=== PATIENT | female | born 1950 | race Caucasian/White ===

== ENCOUNTER 2017-05-20 08:01 | Day surgery (SDC) | payer BC ==
[2017-05-14 10:50] VITALS: BMI 24.7
[2017-05-20] MEDS: PHENYLEPHRINE 2.5% OPHTH SOLN 15 ML BOTTLE ONE ×3 (08:45→08:55)
[2017-05-20] MEDS: CIPROFLOXACIN 0.3% EYE DROPS 5 ML BOTTLE ONE ×3 (08:45→08:55)
[2017-05-20] MEDS: TROPICAMIDE 1% OPHTH SOLN 15 ML BOTTLE ONE ×3 (08:45→08:55)
[2017-05-20] MEDS: CYCLOPENTOLATE 2% OPHTH SOLN 2 ML BOTTLE ONE ×3 (08:45→08:55)
[2017-05-20 08:46] VITALS: TEMP 98.2
[2017-05-20] MEDS ORDERED: CARBACHOL 0.01% INTRA-OCULAR 1.5 ML VIAL ONE (10:25)
[2017-05-20] MEDS ORDERED: TETRACAINE 0.5% OPHTH SOLN 2 ML BOTTLE ONE (10:25)
[2017-05-20] MEDS ORDERED: BSS (NA/CA/MG/K) BALANCED SALT SOLUTION OPHTH SOLN 15 ML BOTTLE ONE (10:25)
[2017-05-20] MEDS ORDERED: MIDAZOLAM HCL 2 MG/2 ML SINGLE DOSE VIAL ONE ×2 (10:29→10:40)
[2017-05-20] MEDS ORDERED: LACTATED RINGERS SOLUTION 1,000 ML IV SCH (10:45)
[2017-05-20] MEDS ORDERED: ACETAMINOPHEN 325 MG TABLET (FP) ONE (11:29)
[2017-05-20] MEDS ORDERED: ACETAMINOPHEN 325 MG TABLET (FP) PO ONE (11:35)
[2017-05-20 13:13] VITALS: BP 124/76; PULSE 73
--- NOTE | 2017-05-21 11:22 | OP ---
DATE OF OPERATION: 05/20/2017 OPERATIVE PROCEDURE: Lens Phacoemulsification with Posterior Chamber Intraocular Lens Placement Left Eye PREOPERATIVE DIAGNOSIS: Visually Significant Cataract of Left Eye POSTOPERATIVE DIAGNOSIS: Visually Significant Cataract of Left Eye SURGEON: Lowell Mueller M.D. ANESTHESIA: MAC PROCEDURE: The patient was brought to the operating room and placed under monitored anesthesia care by Anesthesia. A drop of Tetracaine was then placed over the left eye. The patient was then prepped and draped in the usual sterile manner. A speculum was then placed over the left eye. The eye was then well irrigated with copious amounts of BSS (balanced salt solution). The operating microscope was then moved into position. A paracentesis was performed using a 15 degree blade. At this point 0.5 mL of 1% preservative-free lidocaine was injected into the anterior chamber. Amvisc plus was then injected into the anterior chamber. A clear corneal incision was then formed using a 2.2 mm keratome. A capsulorrhexis was then performed in a continuous circular fashion beginning with a cystotome, completed with a capsulorrhexis forceps. Hydrodissection was then performed using BSS on a cannula. The phaco probe was then introduced through the corneal wound and the cataract was removed using the phaco chop technique. Approximately 3 seconds of absolute phaco time was used. The remaining cortex was then removed using irrigation and aspiration with an I/A probe. The capsule was then filled with regular Amvisc and the capsule was noted to be intact. A previously selected foldable posterior chamber intraocular lens (18.5 diopter [id number]) was then injected into the capsule through the corneal wound using a lens injector. It was then dialed into position using a Sinskey hook. The Amvisc was then removed using irrigation and aspiration. Miostat was then injected through the paracentesis to constrict the pupil. The paracentesis and corneal wound were then hydrated and noted to be water tight. A drop of Maxitrol was then placed over the eye. The speculum was removed and clear shield was taped over the eye. The patient tolerated the procedure well and there were no surgical complications. The patient was asked to follow up in my office the next day. LOWELL MUELLER M.D. GALE/[id number] MTDD
== END 2017-05-20 13:21 | disposition home or self-care (01) ==
LOC: FASU 08:01
PROVIDERS: ATTEND Ophthalmology
PROC: 08RK3JZ Replacement of Left Lens with Synthetic Substitute, Percutaneous Approach (ICD-10-PCS; principal; 2017-05-20 10:38)
DX: H26.8 Other specified cataract (principal)

== ENCOUNTER 2017-12-31 18:21 | Observation (INO) | payer BC, OTHER ==
[2017-12-31 18:26] VITALS: BMI 30.1
[2017-12-31] MEDS ORDERED: NITROGLYCERIN SUBLINGUAL 1/150 0.4 MG TAB SL ONE (18:35)
--- NOTE | 2017-12-31 18:41 | PDOC ---
History of Present Illness - General Chief Complaint: Chest Pain Stated Complaint: CHEST PAIN Time Seen by Provider: 12/31/17 18:32 History Source: Patient Exam Limitations: No Limitations - History of Present Illness Initial Comments: 12/31/17 18:36 67 y/o female developed chest pain around 3 pm today. No hx of cardiac disease. Developed neck and chest pain with SOB. Now having chest pain. No back pain or arm pain. Was in [facility], but did not want to get stuck there in the early hours so took train home. No fall or trauma. Patient took Aspirin when she got home. No N /V/D/C. No diaphoresis. 12/31/17 18:52 Presenting Symptoms: Chest Pain, Short of Breath Past History - Past Medical History Allergies/Adverse Reactions: Allergies Allergy/AdvReac Type Severity Reaction Status Date / Time No Known Allergies Allergy Verified 12/31/17 18:23 Home Medications: Ambulatory Orders RX: Levothyroxine [Synthroid -] 175 mcg PO DAILY 05/20/17 Anemia: No Asthma: No Cancer: Yes (basal cell skin) Cardiac Disorders: No CVA: No COPD: No CHF: No Dementia: No Diabetes: No GI Disorders: No Disorders: No HTN: Yes Hypercholesterolemia: No Liver Disease: No Seizures: No Thyroid Disease: Yes - Surgical History Abdominal Surgery: No Appendectomy: No Cardiac Surgery: No Cholecystectomy: No Lung Surgery: No Neurologic Surgery: No Orthopedic Surgery: Yes (R foot sx,R knee arthroscopy) - Suicide/Smoking/Psychosocial Hx Smoking History: Never smoked Have you smoked in the past 12 months: No Hx Alcohol Use: No Drug/Substance Use Hx: No Substance Use Type: None Hx Substance Use Treatment: No Cardiac Specific PMH - Complaint Specific PMHX Pacemaker: No Review of Systems - Review of Systems Able to Perform ROS?: Yes Is the patient limited Swazi proficient: No Constitutional: No: Chills, Fever Respiratory: Yes: Shortness of Breath. No: Cough Cardiac (ROS): Yes: Chest Pain ABD/GI: No: Nausea, Vomiting All Other Systems: Reviewed and Negative *Physical Exam - Vital Signs Last Vital Signs Temp Pulse Resp BP Pulse Ox 63 18 115/69 100 12/31/17 19:15 12/31/17 18:48 12/31/17 19:15 03/01/18 18:48 - Physical Exam General Appearance: Yes: Nourished, Appropriately Dressed. No: Apparent Distress HEENT: positive: EOMI, UNIQUE, Normal ENT Inspection, Normal Voice, Symmetrical, Pharynx Normal Neck: positive: Trachea midline, Normal Thyroid, Supple. negative: Tender, Rigid, Carotid bruit Respiratory/Chest: positive: Lungs Clear, Normal Breath Sounds. negative: Chest Tender, Respiratory Distress Cardiovascular: positive: Regular Rhythm, Regular Rate, S1, S2. negative: Edema , JVD, Murmur Vascular Pulses: Femoral (R): 4+, Femoral (L): 4+, Carotid (R): 4+, Carotid (L) : 4+, Dorsalis-Pedis (R): 4+, Doralis-Pedis (L): 4+ Gastrointestinal/Abdominal: positive: Normal Bowel Sounds, Flat, Soft. negative : Tender, Organomegaly, Pulsatile Mass Lymphatic: negative: Adenopathy, Tenderness, Other Musculoskeletal: positive: Normal Inspection. negative: CVA Tenderness Extremity: positive: Normal Capillary Refill, Normal Inspection, Normal Range of Motion, Other (pulses equal b/l in UE and LE). negative: Calf Tenderness Integumentary: positive: Normal Color, Dry, Warm Neurologic: positive: propeller tester II-XII NML intact, Fully Oriented, Alert, Normal Mood/ Affect, Normal Response, Motor Strength 5/5 Heart Score/ECG Review - ECG Intrepretation Rhythm: Regular Rhythm Comment:: 12/31/17 18:40 At 18:30 NSR No STEMI T wave inversion lead III ED Treatment Course - LABORATORY CBC & Chemistry Diagram: 12/31/17 18:38 12/31/17 18:38 - ADDITIONAL ORDERS Additional order review: Laboratory Results 12/31/17 12/31/17 18:38 18:38 Sodium 132 L Potassium 3.5 Chloride 100 Carbon Dioxide 25 Anion Gap 7 L BUN 20 H Creatinine 1.1 Creat Clearance w eGFR 49.39 Random Glucose 103 Calcium 9.3 Total Bilirubin 0.8 AST 21 ALT 18 Alkaline Phosphatase 55 Troponin I < 0.03 Total Protein 6.7 Albumin 4.2 12/31/17 18:38 RBC 4.90 MCV 90.7 MCHC 33.5 RDW 13.6 MPV 8.4 Neutrophils % 78.5 Lymphocytes % 12.5 Monocytes % 6.3 Eosinophils % 2.3 Basophils % 0.4 - RADIOLOGY Radiology Studies Ordered: Category Date Time Status CHEST CTA [CT] Stat CT Scan 12/31/17 19:18 Ordered CHEST X-RAY PORTABLE* [RAD] Stat Radiology 12/31/17 18:35 Completed - Medications Given in the ED: ED Medications Discontinued Medications Generic Name Dose Route Start Last Admin Trade Name Emili PRN Reason Stop Dose Admin Nitroglycerin 0.4 mg 12/31/17 18:35 12/31/17 19:05 Nitrostat - SL 12/31/17 18:36 Not Given ONCE ONE Ondansetron HCl 4 mg 12/31/17 18:43 12/31/17 18:43 Zofran Injection IVPUSH 12/31/17 18:44 4 mg ONCE ONE Administration Progress Note - Progress Note Progress Note: Will obtain labs and EKG for further cardiac evaluation. Pt is in agreement with plan. Pt's hear rate dropped into upper 30's and low 40's with only Zofran being given , IVF bolus given. HR now in the 60,s Chest Xray: No widening of mediastinum, unchanged from prior EKG NST at 60, no STEMI seen at 18:53 Pt states having SOB, hurts to breath, will add CT chest to r/o dissecting aneurysm/PE Pt is in agreement with plan At [address] Laboy. Labs normal and CT pending. Will need admission and Cardiology consult. *DC/Admit/Observation/Transfer Diagnosis at time of Disposition: Shortness of breath Chest pain Qualifiers: Chest pain type: unspecified Qualified Code(s): R07.9 - Chest pain, unspecified - Discharge Dispostion Condition at time of disposition: Guarded - Referrals - Patient Instructions - Post Discharge Activity
[2017-12-31] MEDS ORDERED: NITROGLYCERIN SUBLINGUAL 1/150 0.4 MG TAB ONE (18:42)
[2017-12-31] MEDS ORDERED: ONDANSETRON 4 MG/2 ML VIAL IVPUSH ONE (18:43)
[2017-12-31] MEDS ORDERED: ONDANSETRON 4 MG/2 ML VIAL ONE (18:43)
[2017-12-31] MEDS ORDERED: SODIUM CHLORIDE 500 ML IV STA (18:48)
[2017-12-31 19:04] LABS: BASO % 0.4 % (0-2.0); EOS % 2.3 % (0-4.5); HEMATOCRIT 44.5 % (32.4-45.2); HEMOGLOBIN 14.9 GM/dl (10.7-15.3); LYMPH % 12.5 % (8-40); MCH 30.4 pg (25.7-33.7); MCHC 33.5 g/dl (32.0-36.0); MEAN CELL VOLUME 90.7 fl (80-96); MEAN PLT VOLUME 8.4 fl (7.5-11.1); MONO % 6.3 % (3.8-10.2); NEUT % 78.5 % (42.8-82.8); PLATELET COUNT 309 K/MM3 (134-434); RDW 13.6 % (11.6-15.6); WHITE BLOOD COUNT 11.6 K/mm3 (4.0-10.8)
[2017-12-31 19:13] LABS: ALBUMIN 4.2 g/dl (3.5-5.0); ALK PHOS 55 U/L (32-92); ANION GAP 7 (8-16); BILIRUBIN,TOTAL 0.8 mg/dl (0.2-1.0); BLOOD UREA NITROGEN 20 mg/dl (7-18); CALCIUM 9.3 mg/dl (8.4-10.2); CHLORIDE 100 mmol/L (98-107); CO2 25 mmol/L (22-28); CREATININE 1.1 mg/dl (0.6-1.3); GLUCOSE,RANDOM 103 mg/dl (74-106); POTASSIUM 3.5 mmol/L (3.5-5.1); SGOT/AST 21 U/L (10-42); SGPT/ALT 18 U/L (10-40); SODIUM 132 mmol/L (136-145); TOT PROT 6.7 g/dl (6.4-8.3)
--- NOTE | 2017-12-31 20:52 | PDOC ---
*Physical Exam - Vital Signs Last Vital Signs Temp Pulse Resp BP Pulse Ox 95 H 24 122/100 98 12/31/17 20:20 12/31/17 20:20 12/31/17 20:20 12/31/17 20:20 ED Treatment Course - LABORATORY CBC & Chemistry Diagram: 12/31/17 18:38 12/31/17 18:38 - ADDITIONAL ORDERS Additional order review: Laboratory Results 12/31/17 12/31/17 18:38 18:38 Sodium 132 L Potassium 3.5 Chloride 100 Carbon Dioxide 25 Anion Gap 7 L BUN 20 H Creatinine 1.1 Creat Clearance w eGFR 49.39 Random Glucose 103 Calcium 9.3 Total Bilirubin 0.8 AST 21 ALT 18 Alkaline Phosphatase 55 Troponin I < 0.03 Total Protein 6.7 Albumin 4.2 12/31/17 18:38 RBC 4.90 MCV 90.7 MCHC 33.5 RDW 13.6 MPV 8.4 Neutrophils % 78.5 Lymphocytes % 12.5 Monocytes % 6.3 Eosinophils % 2.3 Basophils % 0.4 - Medications Given in the ED: ED Medications Discontinued Medications Generic Name Dose Route Start Last Admin Trade Name Freq PRN Reason Stop Dose Admin Sodium Chloride 500 mls @ 500 mls/hr 12/31/17 18:48 12/31/17 18:49 Normal Saline - IV 12/31/17 19:47 500 mls/hr ASDIR STA Administration Nitroglycerin 0.4 mg 12/31/17 18:35 12/31/17 19:05 Nitrostat - SL 12/31/17 18:36 Not Given ONCE ONE Ondansetron HCl 4 mg 12/31/17 18:43 12/31/17 18:43 Zofran Injection IVPUSH 12/31/17 18:44 4 mg ONCE ONE Administration Progress Note - Progress Note Progress Note: Care of this patient was transferred to [place] from Dr. Ling at 1900 hrs. Patient is a 67-year-old female who developed chest pain associated with shortness of breath earlier in the day about 3 PM. Patient came in for evaluation. While here in the emergency room patient had an episode of increased chest pain, shortness of breath and developed a brief episode of some bradycardia. Patient was given some nitroglycerin and a CT angiogram of her chest to rule out aortic dissection rule out pulmonary embolism 20:45 CT angiogram of the chest was negative for any acute pathology negative for any PE or aneurysm. It is uncertain as to the etiology of patient's chest pain as her EKG is unremarkable 2 however patient will be placed in an observation bed to obtain 2 more sets of cardiac enzymes and rule her out. *DC/Admit/Observation/Transfer Diagnosis at time of Disposition: Shortness of breath Chest pain Qualifiers: Chest pain type: unspecified Qualified Code(s): R07.9 - Chest pain, unspecified - Discharge Dispostion Condition at time of disposition: Guarded Admit: Yes - Referrals - Patient Instructions - Post Discharge Activity
--- NOTE | 2018-01-01 00:30 | HP ---
CHIEF COMPLAINT: chest pain PCP: Kevin HISTORY OF PRESENT ILLNESS: This is a 67 year old male with a significant past medical history of HTN who presented to the ED with chest pain since 3pm. She states that the pain started suddenly while she was sitting at her desk. She says the pain increases with breathing and is unable to take a deep breath.She states the pain radiated to her neck. She denies palpitations. Upon exam, pt reports the pain is more severe than earlier. The pain is improved when she sits up and leans forward but it is still present. Of note, pt had an episode of bradycardia in the ED but rate not documented. ER course was notable for: (1) ECG with flipped T wave lead 3 (2) Troponin neg x 1 (3) WBC 11.6 Recent Travel: pt denies PAST MEDICAL HISTORY: HTN, Hypothyroid, herpes simplex, BCC skin on back PAST SURGICAL HISTORY: R ACL repair R foot "hemijoint" L cataract Social History: Smoking: pt denies Alcohol: pt denies Drugs: pt denies Family History: maternal GM with angina mother age 95, h/o CVA first at age 85, HTN father age 72, complications of celiac disease brother alive with no medical problems 3 children alive and well Allergies No Known Allergies Allergy (Verified 12/31/17 18:23) HOME MEDICATIONS: 3 Medication Instructions Recorded Levothyroxine [Synthroid -] 175 mcg PO DAILY 05/20/17 REVIEW OF SYSTEMS CONSTITUTIONAL: Absent: fever, chills, diaphoresis, generalized weakness, malaise, loss of appetite, weight change HEENT: Absent: rhinorrhea, nasal congestion, throat pain, throat swelling, difficulty swallowing, mouth swelling, ear pain, eye pain, visual changes CARDIOVASCULAR: chest pain Absent: syncope, palpitations, irregular heart rate, lightheadedness, peripheral edema RESPIRATORY: Absent: cough, shortness of breath, dyspnea with exertion, orthopnea, wheezing, stridor, hemoptysis GASTROINTESTINAL: Absent: abdominal pain, abdominal distension, nausea, vomiting, diarrhea, constipation, melena, hematochezia GENITOURINARY: Absent: dysuria, frequency, urgency, hesitancy, hematuria, flank pain, genital pain MUSCULOSKELETAL: Absent: myalgia, arthralgia, joint swelling, back pain, neck pain SKIN: Absent: rash, itching, pallor HEMATOLOGIC/IMMUNOLOGIC: Absent: easy bleeding, easy bruising, lymphadenopathy, frequent infections ENDOCRINE: Absent: unexplained weight gain, unexplained weight loss, heat intolerance, cold intolerance NEUROLOGIC: Absent: headache, focal weakness or paresthesias, dizziness, unsteady gait, seizure, mental status changes, bladder or bowel incontinence PSYCHIATRIC: Absent: anxiety, depression, suicidal or homicidal ideation, hallucinations. PHYSICAL EXAMINATION Vital Signs - 24 hr 3 12/31/17 12/31/17 12/31/17 18:22 18:48 18:56 Pulse Rate 100 H Pulse Rate [ 36 L 70 Apical] Respiratory 18 18 Rate Blood Pressure 171/104 Blood Pressure 81/44 118/55 [Left Arm] O2 Sat by Pulse 100 100 Oximetry (%) 3 12/31/17 12/31/17 12/31/17 19:15 20:20 21:17 Pulse Rate Pulse Rate [ 63 95 H 93 H Apical] Respiratory 24 24 Rate Blood Pressure Blood Pressure 115/69 122/100 123/79 [Left Arm] O2 Sat by Pulse 98 98 Oximetry (%) GENERAL: Awake, alert, and fully oriented, in no acute distress. HEAD: Normal with no signs of trauma. EYES: Pupils equal, round and reactive to light, extraocular movements intact, sclera anicteric, conjunctiva clear. No lid lag. EARS, NOSE, THROAT: Ears normal, nares patent, oropharynx clear without exudates. Moist mucous membranes. NECK: Normal range of motion, supple without lymphadenopathy, JVD, or masses. LUNGS: Breath sounds equal, clear to auscultation bilaterally. No wheezes, and no crackles. No accessory muscle use. HEART: Regular rate and rhythm, normal S1 and S2 without murmur, rub or gallop. ABDOMEN: Soft, nontender, not distended, normoactive bowel sounds, no guarding, no rebound, no masses. No hepatomegaly or splenomegaly. MUSCULOSKELETAL: Normal range of motion at all joints. No bony deformities or tenderness. No CVA tenderness. UPPER EXTREMITIES: 2+ pulses, warm, well-perfused. No cyanosis. No clubbing. No peripheral edema. LOWER EXTREMITIES: 2+ pulses, warm, well-perfused. No calf tenderness. No peripheral edema. NEUROLOGICAL: Cranial nerves II-XII intact. Normal speech. Normal gait. PSYCHIATRIC: Cooperative. Good eye contact. Appropriate mood and affect. SKIN: Warm, dry, normal turgor, no rashes or lesions noted, normal capillary refill. Laboratory Results - last 24 hr 3 12/31/17 12/31/17 12/31/17 18:38 18:38 18:38 WBC 11.6 H RBC 4.90 Hgb 14.9 Hct 44.5 MCV 90.7 MCH 30.4 MCHC 33.5 RDW 13.6 Plt Count 309 MPV 8.4 Neutrophils % 78.5 Lymphocytes % 12.5 Monocytes % 6.3 Eosinophils % 2.3 Basophils % 0.4 Sodium 132 L Potassium 3.5 Chloride 100 Carbon Dioxide 25 Anion Gap 7 L BUN 20 H Creatinine 1.1 Creat Clearance w eGFR 49.39 Random Glucose 103 Calcium 9.3 Total Bilirubin 0.8 AST 21 ALT 18 Alkaline Phosphatase 55 Troponin I < 0.03 Total Protein 6.7 Albumin 4.2 ECG 12/31/17 18:30 NSR vent rate 90, QTC 455 TWI lead 3, ? Q wave lead 2, aVF 12/31/17 18:53 NSR vent rate 60, QTC 446 TWI lead 3, ? Q wave lead 2, aVF 01/01/18 00:55 NSR vent rate 76, QTC 441 TWI lead 3, Q waves lead 2, aVF not as pronounced Radiology Reports CTA chest IMPRESSION: 1. No evidence of pulmonary embolism. 2. Bibasilar atelectasis with no evidence of acute pathology within the chest. Reported By: Tyler Bone MD 12/31/172044 CXR IMPRESSION: Cardiomegaly, no acute disease. Reported By: Tyler Bone MD 12/31/17 191 ASSESSMENT/PLAN: 67yF with PMH HTN, herpes simplex, hypothyroidism presented to the ED with sudden onset chest pain today. chest pain - troponin neg x 1, trend x 2 more - tele monitoring - ? pericarditis picture: pleuritic in nature, improves with sitting up and leaning forward, will give toradol 30mg x 1, if effective will start ibuprofen 600mg TID and colchicine - cardiology consult - echo HTN - cont home prinivil herpes simplex - cont home valtrex hypothyroidism - pt believes synthroid 175 is her home dose, attempt to verify in am. DVT PPX - defer as expected LOS less than 48 h FEN - defer IVF, tolerating po - BMP in am - low sodium diet as tolerated Dispo: pt admitted for further observation Hospitalist Screening - Colonoscopy Questionnaire Colonoscopy Questionnaire: Colonoscopy Questionnaire
[2018-01-01] MEDS ORDERED: KETOROLAC TROMETHAMINE 30 MG/1 ML VIAL IVPUSH ONE ×2 (00:52→10:15)
[2018-01-01] MEDS ORDERED: MELATONIN 5 MG TABLETS PO ONE (01:09)
[2018-01-01] MEDS ORDERED: MAGNESIUM OXIDE 400 MG TABLET (FP) PO ONE (01:09)
[2018-01-01] MEDS ORDERED: LEVOTHYROXINE NA 100 MCG TABLET (FP) ONE (06:40)
[2018-01-01] MEDS ORDERED: LEVOTHYROXINE NA 75 MCG TABLET (FP) ONE (06:41)
[2018-01-01] MEDS: LEVOTHYROXINE 100 MCG, LEVOTHYROXINE 75 MCG PO SCH (06:50)
--- NOTE | 2018-01-01 08:06 | PN ---
Physical Exam: SUBJECTIVE: Patient seen and examined, reports substernal non-radiating pain that worsens upon lying and taking deep breaths, patient reports pain is improved upon leaning forward. OBJECTIVE: patient is a 67 y/o female with a past medical history of hypertension and hypothyroidsim, patient was admitted from the emergency department to observation for chest pain, r/o acs. Vital Signs Period Temp Pulse Resp BP Sys/Felipe Pulse Ox Last 24 Hr 99.8 F-100.5 F 36-100 18-24 81-171/44-104 95-100 GENERAL: The patient is awake, alert, and fully oriented, in no acute distress. HEAD: Normal with no signs of trauma. EYES: PERRL, extraocular movements intact, sclera anicteric, conjunctiva clear. No ptosis. ENT: Ears normal, nares patent, oropharynx clear without exudates, moist mucous membranes. NECK: Trachea midline, full range of motion, supple. LUNGS: Breath sounds equal, clear to auscultation bilaterally, no wheezes, no crackles, no accessory muscle use. HEART: Regular rate and rhythm, S1, S2 without murmur, rub or gallop. ABDOMEN: Soft, nontender, nondistended, normoactive bowel sounds, no guarding, no rebound, no hepatosplenomegaly, no masses. EXTREMITIES: 2+ pulses, warm, well-perfused, no edema. NEUROLOGICAL: Cranial nerves II through XII grossly intact. Normal speech, gait not observed. PSYCH: Normal mood, normal affect. SKIN: Warm, dry, normal turgor, no rashes or lesions noted Laboratory Results - last 24 hr 12/31/17 12/31/17 12/31/17 18:38 18:38 18:38 WBC 11.6 H RBC 4.90 Hgb 14.9 Hct 44.5 MCV 90.7 MCH 30.4 MCHC 33.5 RDW 13.6 Plt Count 309 MPV 8.4 Neutrophils % 78.5 Lymphocytes % 12.5 Monocytes % 6.3 Eosinophils % 2.3 Basophils % 0.4 Sodium 132 L Potassium 3.5 Chloride 100 Carbon Dioxide 25 Anion Gap 7 L BUN 20 H Creatinine 1.1 Creat Clearance w eGFR 49.39 Random Glucose 103 Calcium 9.3 Total Bilirubin 0.8 AST 21 ALT 18 Alkaline Phosphatase 55 Creatine Kinase Troponin I < 0.03 Total Protein 6.7 Albumin 4.2 01/01/18 00:30 WBC RBC Hgb Hct MCV MCH MCHC RDW Plt Count MPV Neutrophils % Lymphocytes % Monocytes % Eosinophils % Basophils % Sodium Potassium Chloride Carbon Dioxide Anion Gap BUN Creatinine Creat Clearance w eGFR Random Glucose Calcium Total Bilirubin AST ALT Alkaline Phosphatase Creatine Kinase 57 Troponin I 0.13 H Total Protein Albumin Active Medications Generic Name Dose Route Start Last Admin Trade Name Freq PRN Reason Stop Dose Admin Levothyroxine Sodium 100 mcg/ 175 mcg 01/01/18 07:00 01/01/18 06:50 Levothyroxine Sodium 75 mcg PO 175 mcg DAILY@0700 [facility] Administration Lisinopril 10 mg 01/01/18 10:00 Prinivil PO DAILY [facility] Magnesium Oxide 400 mg 01/01/18 22:00 Mag-Ox - PO HS [facility] Valacyclovir HCl 500 mg 01/01/18 10:00 Valtrex - PO DAILY [facility] ECG 12/31/17 18:30 NSR vent rate 90, QTC 455 TWI lead 3, ? Q wave lead 2, aVF 12/31/17 18:53 NSR vent rate 60, QTC 446 TWI lead 3, ? Q wave lead 2, aVF 01/01/18 00:55 NSR vent rate 76, QTC 441 TWI lead 3, Q waves lead 2, aVF not as pronounced Radiology Reports CTA chest IMPRESSION: 1. No evidence of pulmonary embolism. 2. Bibasilar atelectasis with no evidence of acute pathology within the chest. Reported By: Tyler Bone MD 12/31/172044 CXR IMPRESSION: Cardiomegaly, no acute disease. Reported By: Tyler Bone MD 12/31/17 191 ASSESSMENT/PLAN: 1) chest pain r/o acs - troponin x 3 wnl, no events telemetry events - pending echo - pain resolved with toradol, pleuritic in nature, improves with sitting up and leaning forward, pain likely pericarditis - appreciate cardiology consult 2)HTN - cont home prinivil 3) herpes simplex - cont home valtrex 4) hypothyroidism - continue home dose synthroid 175, pending tsh DVT PPX - defer as expected LOS less than 48 h FEN - defer IVF, tolerating po - BMP in am - low sodium diet as tolerated Dispo: pt admitted for further observation Visit type - Emergency Visit Emergency Visit: Yes ED Registration Date: 12/31/17 Care time: The patient presented to the Emergency Department on the above date and was hospitalized for further evaluation of their emergent condition. - New Patient This patient is new to me today: No - Critical Care Critical Care patient: No - Discharge Referral Referred to [facility] No
[2018-01-01 08:27] LABS: EOS % 0.5 % (0-4.5); HEMATOCRIT 36.3 % (32.4-45.2); HEMOGLOBIN 12.7 GM/dl (10.7-15.3); LYMPH % 10.5 % (8-40); MCH 31.6 pg (25.7-33.7); MCHC 34.9 g/dl (32.0-36.0); MEAN CELL VOLUME 90.5 fl (80-96); MEAN PLT VOLUME 8.5 fl (7.5-11.1); MONO % 10.9 % (3.8-10.2); NEUT % 78.1 % (42.8-82.8); PLATELET COUNT 225 K/MM3 (134-434); RBC 4.02 M/mm3 (3.60-5.2); RDW 13.6 % (11.6-15.6); WHITE BLOOD COUNT 9.4 K/mm3 (4.0-10.8)
[2018-01-01 08:49] LABS: ANION GAP 6 (8-16); BLOOD UREA NITROGEN 19 mg/dl (7-18); CALCIUM 8.4 mg/dl (8.4-10.2); CHLORIDE 106 mmol/L (98-107); CO2 23 mmol/L (22-28); CREATININE 1.1 mg/dl (0.6-1.3); GLUCOSE,RANDOM 116 mg/dl (74-106); PHOSPHOROUS 4.2 mg/dl (2.5-4.6); POTASSIUM 3.7 mmol/L (3.5-5.1); SODIUM 135 mmol/L (136-145)
[2018-01-01] MEDS ORDERED: LEVOTHYROXINE NA 175 MCG TABLET PO SCH (10:00)
[2018-01-01] MEDS ORDERED: PANTOPRAZOLE SODIUM 40 MG VIAL IVPUSH SCH (10:15)
[2018-01-01] MEDS: SODIUM CHLORIDE 0.9%/KCL 20 MEQ/1,000 ML INFUS.BAG IV SCH (10:22)
[2018-01-01] MEDS: LISINOPRIL 10 MG TABLET (FP) PO SCH (10:22)
[2018-01-01] MEDS: valACYclovir HCL 500 MG TABLET (FP) PO SCH (10:24)
[2018-01-01] MEDS ORDERED: ONDANSETRON 4 MG/2 ML VIAL IVPB ONE (10:30)
[2018-01-01] MEDS ORDERED: IBUPROFEN 600 MG TABLET (FP) PO PRN (11:35)
[2018-01-01] MEDS: IBUPROFEN 400 MG TABLET (FP) PO SCH ×2 (15:54→23:10)
[2018-01-01 16:48] LABS: URINE APPEARANCE Clear; URINE BILIRUBIN 1+ (NEGATIVE); URINE BLOOD Negative (NEGATIVE); URINE GLUCOSE (UA) Negative (NEGATIVE); URINE KETONE Negative (NEGATIVE); URINE LEUK ESTERASE Negative (NEGATIVE); URINE NITRITE Negative (NEGATIVE); URINE UROBILINOGEN 0.2 (0.2-1.0)
[2018-01-01 16:49] LABS: URINE COLOR YELLOW; URINE PROTEIN 1+ (NEGATIVE)
--- NOTE | 2018-01-01 18:19 | EKG ---
Test Reason : Blood Pressure : / mmHG Vent. Rate : 090 BPM Atrial Rate : 090 BPM P-R Int : 180 ms QRS Dur : 096 ms QT Int : 372 ms P-R-T Axes : 030 028 017 degrees QTc Int : 455 ms NORMAL SINUS RHYTHM ? INFERIOR INFARCT , AGE UNDETERMINED NO PREVIOUS ECGS AVAILABLE Confirmed by MD QUIN, NAHUM ([id number]) on 01/01/2018 6:19:25 PM Referred By: DR DEL RIO Confirmed By:NAHUM TSAI MD
--- NOTE | 2018-01-01 18:19 | EKG ---
Test Reason : Blood Pressure : / mmHG Vent. Rate : 076 BPM Atrial Rate : 076 BPM P-R Int : 160 ms QRS Dur : 096 ms QT Int : 392 ms P-R-T Axes : 026 012 005 degrees QTc Int : 441 ms NORMAL SINUS RHYTHM WHEN COMPARED WITH ECG OF 31-DEC-2017 18:30, NO SIGNIFICANT CHANGE WAS FOUND Confirmed by MD TSAI MARJORY ([id number]) on 01/01/2018 6:19:07 PM Referred By: Confirmed By:NAHUM TSAI MD
[2018-01-01 18:49] LABS: EPI CELLS FEW /HPF; URINE BACTERIA FEW /hpf (NEGATIVE); URINE RBC 0-2 /hpf (0-3)
--- NOTE | 2018-01-01 20:27 | CON.CARD ---
Cardiology Consult (text) - Consultation Consultation Note: cc: cp 67 yo with h/o HTN , hypothyroid, herpes simplex, basal cell carcinoma who p/w CP. Began yesterday at work, has been constant ever since. Was able to take public transportation home (walked upstairs to subway, etc...) without worsening of CP. CP positional and pleuritic. Increases in severity when lying down or with inspiration. Improves when sitting up. No recent URI or illness. Exercises regularly, no increase in intensity of routine. CP not reproducible to palpation. Assoc with h/a. No rosas, orthopnea, pnd, le edema, palps, dizziness, + chills, sweats today and yesterday. No n/v/d, cough, congestion, rash, visual disturbance, decrease in po intake. In ER received IVF, zofran. Today received toradol x 2 with significant improvement (though not resolution) of pain. PAST MEDICAL HISTORY: per hpi, PAST SURGICAL HISTORY: R ACL repair R foot "hemijoint" L cataract Social History: Smoking: pt denies Alcohol: pt denies Drugs: pt denies Family History: maternal GM with angina mother age 95, h/o CVA first at age 85, HTN father age 72, complications of celiac disease brother alive with no medical problems 3 children alive and well Ros: per hpi Ambulatory Orders Levothyroxine [Synthroid -] 175 mcg PO DAILY 05/20/17 Ibuprofen [Motrin -] 600 mg PO Q8H PRN tablet 01/01/18 Lisinopril [Prinivil] 10 mg PO DAILY 01/01/18 Magnesium Oxide 400 mg PO HS 01/01/18 Valacyclovir HCl [Valtrex] 500 mg PO DAILY 01/01/18 Current Medications Potassium Chloride/Sodium Chloride (Ns+20 Meq Kcl -) 20 meq in 1,000 mls @ 83 mls/hr IV ASDIR [facility] Last Admin: 01/01/18 10:22 Dose: 83 mls/hr Ibuprofen (Motrin -) 800 mg PO Q8H [facility] Last Admin: 01/01/18 15:54 Dose: 800 mg Levothyroxine Sodium 100 mcg/ (Levothyroxine Sodium 75 mcg) 175 mcg PO DAILY@ 0700 [facility] Last Admin: 01/01/18 06:50 Dose: 175 mcg Lisinopril (Prinivil) 10 mg PO DAILY [facility] Last Admin: 01/01/18 10:22 Dose: 10 mg Magnesium Oxide (Mag-Ox -) 400 mg PO [facility] Pantoprazole Sodium (Protonix Iv) 40 mg IVPUSH DAILY [facility] Last Admin: 01/01/18 10:14 Dose: 40 mg Valacyclovir HCl (Valtrex -) 500 mg PO DAILY [facility] Last Admin: 01/01/18 10:24 Dose: Not Given Vital Signs - 24 hr 12/31/17 01/01/18 01/01/18 21:17 01:34 05:06 Temperature 100.5 F H 99.8 F H Pulse Rate 73 68 Pulse Rate [ 93 H Apical] Respiratory 24 18 19 Rate Blood Pressure 99/57 90/44 Blood Pressure 123/79 [Left Arm] O2 Sat by Pulse 98 95 Oximetry (%) 01/01/18 01/01/18 01/01/18 06:26 10:02 14:00 Temperature 99.2 F 98.7 F Pulse Rate 77 84 Pulse Rate [ Apical] Respiratory 16 17 Rate Blood Pressure 116/63 97/53 Blood Pressure [Left Arm] O2 Sat by Pulse 95 94 L Oximetry (%) Intake & Output 12/30/17 12/31/17 01/01/18 01/02/18 07:59 07:59 07:59 07:59 Intake Total 1450 1064 Balance 1450 1064 Weight 170 lb nad, calm but in discomfort. jvd flat, neck supple ctab, nl effort rrr nl s1, s2 2/6 murmur at sternal border and apex. no rub. + bs soft nt nd, no hsm ext without e/c/c + dp/pt, no carotid bruits aaox3 no jaundice, diaphoresis. CBC, BMP 01/01/18 07:35 01/01/18 07:35 Laboratory Tests 12/31/17 12/31/17 12/31/17 18:38 18:38 18:38 WBC 11.6 H ESR Potassium 3.5 Magnesium Total Bilirubin 0.8 AST 21 ALT 18 Alkaline Phosphatase 55 Creatine Kinase Troponin I < 0.03 C-Reactive Protein Albumin 4.2 TSH 01/01/18 01/01/18 01/01/18 00:30 07:30 07:35 WBC ESR Potassium Magnesium 2.0 Total Bilirubin AST ALT Alkaline Phosphatase Creatine Kinase 57 39 Troponin I 0.13 H C-Reactive Protein Albumin TSH 0.03 L 01/01/18 01/01/18 01/01/18 07:35 07:35 07:35 WBC ESR 13 Potassium Magnesium Total Bilirubin AST ALT Alkaline Phosphatase Creatine Kinase Troponin I < 0.03 C-Reactive Protein Pending Albumin TSH ekg: nsr, bline inf q's (slightly more prominent than on office ekg). inferior twi/flattening on initial ekg. Subsequent resolution tele: nsr chest cta: no pe or aortic pathology. atelectasis at bases. A/p 67 yo with h/o HTN , hypothyroid, herpes simplex, basal cell carcinoma who p/w CP. CP - atypical for angina. positional and pleuritic. CRP and echo pending, but can begin empiric tx with ibuprofen TID and colchicine for px. - overall negative trop. ekg without acute ischemic abnormalities. Given RF's and borderline/subtle transient twi --> plan on stress testing as outpatient. - Still currently in significant discomfort, monitor for improvement on this regimen. If no improvement and pending results of crp and echo --> may need to reconsider plan and need for inpatient ischemic evaluation. - evaluation of pleurisy (need for viral panel etc....) per pmd. murmur - echo pending htn - controlled/running low on current regimen. monitor on ibuprofen. ab tsh - mgm't per pmd.
[2018-01-01] MEDS ORDERED: MAGNESIUM OXIDE 400 MG TABLET (FP) PO SCH (22:00)
[2018-01-02] MEDS ORDERED: LEVOTHYROXINE NA 100 MCG TABLET (FP) ONE (06:30)
[2018-01-02] MEDS ORDERED: LEVOTHYROXINE NA 75 MCG TABLET (FP) ONE (06:31)
[2018-01-02] MEDS: LEVOTHYROXINE 100 MCG, LEVOTHYROXINE 75 MCG PO SCH (06:39)
[2018-01-02] MEDS: IBUPROFEN 400 MG TABLET (FP) PO SCH (07:36)
--- NOTE | 2018-01-02 08:00 | PN ---
Progress Note, Physician Chief Complaint: cp History of Present Illness: pain much improved. was severe central cp radiating to base of throat, worse supine and with deep inspiration. also worse when ate large amount and had full stomach (???). did not feel mskeletal to her (lifts 90 lbs weights at gym routinely) was no acid/burning (no h/o heartburn), no nausea, excess saliva now only mild pain, and rare episodes. no sob, palp, syncope denies hi mental stress lately denies viral syndrome/infectious sx's - Current Medication List Current Medications: Active Medications Colchicine (Colcrys -) 0.6 mg PO BID [facility] Potassium Chloride/Sodium Chloride (Ns+20 Meq Kcl -) 20 meq in 1,000 mls @ 83 mls/hr IV ASDIR [facility] Last Admin: 01/01/18 10:22 Dose: 83 mls/hr Ibuprofen (Motrin -) 800 mg PO Q8H [facility] Last Admin: 01/02/18 07:36 Dose: 800 mg Levothyroxine Sodium 100 mcg/ (Levothyroxine Sodium 75 mcg) 175 mcg PO DAILY@ 0700 [facility] Last Admin: 01/02/18 06:39 Dose: 175 mcg Lisinopril (Prinivil) 10 mg PO DAILY [facility] Last Admin: 01/01/18 10:22 Dose: 10 mg Magnesium Oxide (Mag-Ox -) 400 mg PO HS [facility] Last Admin: 01/01/18 21:19 Dose: 400 mg Pantoprazole Sodium (Protonix Iv) 40 mg IVPUSH DAILY [facility] Last Admin: 01/01/18 10:14 Dose: 40 mg Valacyclovir HCl (Valtrex -) 500 mg PO DAILY [facility] Last Admin: 01/01/18 10:24 Dose: Not Given - Objective Vital Signs: Vital Signs Temperature 99.1 F 01/02/18 06:00 Pulse Rate 76 01/02/18 06:00 Respiratory Rate 17 01/02/18 06:00 Blood Pressure 138/90 01/02/18 06:00 O2 Sat by Pulse Oximetry (%) 95 01/02/18 07:07 Constitutional: Yes: Well Nourished, No Distress, Calm Neck: Yes: Lymphadenopathy Cardiovascular: Yes: Regular Rate and Rhythm, S1, S2. No: Gallop, Murmur, Rub Respiratory: Yes: Regular, CTA Bilaterally (no rub). No: Accessory Muscle Use, Rales, Wheezes Extremities: No: Cold Edema: No Neurological: Yes: Alert, Oriented Psychiatric: No: Agitated Labs: CBC, BMP 01/01/18 07:35 01/01/18 07:35 - ....Imaging EKG: Other (tele: NSR) Assessment/Plan ekg: NSR, no signif ST-T abnormalities (x3) Echo 01/17: nl LV/EF; nl RV; dilated LA; mild MR/TR; RVP 35-38; no peric effusion (images reviewed by gitig: no RWMAs chest cta: no pe or aortic pathology. atelectasis at bases. A/p 67 yo with h/o HTN , hypothyroid, herpes simplex, basal cell carcinoma who p/w CP. CP - atypical for angina. positional and pleuritic = mskeletal vs pericarditis vs GERD/other GI - troponin <0.03-->0.13--> <0.03, nonspecific findings - CRP elevated. - normal LV function/wall motion and no peric effusion - no friction rub or ekg changes, hence dx of pericarditis is not certain, but is suspected as the most likely etiology of these sx's - has received 3 doses of ibuprofen 800 mg since yesterday afternoon with signif improvement in sx's - no need for stress testing as her picture is clearly not myocardial ischemic syndrome - rec ibuprofen STANDING REGIMEN 800mg TID x2 weeks, then decrease to 600mg TID x2 weeks - pt to see me in 3-4 weeks to decide on further NSAID taper at that time - defer colchicine for now unless sx's return with NSAID taper - rec pantoprazole prophylaxis until off NSAIDs htn - controlled - cont home meds hyperthyroid - TSH very suppressed (0.03) - ? adjust synthroid dose, per hospitalist
[2018-01-02 09:20] LABS: ANION GAP 7 (8-16); BLOOD UREA NITROGEN 17 mg/dl (7-18); CALCIUM 8.6 mg/dl (8.4-10.2); CHLORIDE 109 mmol/L (98-107); CHOLESTEROL 175 mg/dl; CO2 21 mmol/L (22-28); CREATININE 0.9 mg/dl (0.6-1.3); GLUCOSE,RANDOM 99 mg/dl (74-106); HDL CHOLESTEROL 62 mg/dl (29-89); LDL CHOLESTEROL (ONLY DFH) 102 mg/dl; SODIUM 137 mmol/L (136-145); TRIGLYCERIDES 54 mg/dl (35-160)
[2018-01-02 09:41] VITALS: BP 123/68; PULSE 73; TEMP 98.7
[2018-01-02] MEDS: valACYclovir HCL 500 MG TABLET (FP) PO SCH (09:41)
[2018-01-02] MEDS: LISINOPRIL 10 MG TABLET (FP) PO SCH (09:46)
[2018-01-02] MEDS: SODIUM CHLORIDE 0.9%/KCL 20 MEQ/1,000 ML INFUS.BAG IV SCH (09:46)
[2018-01-02] MEDS ORDERED: PANTOPRAZOLE 40 MG TABLET (FP) PO SCH (10:00)
[2018-01-02] MEDS ORDERED: COLCHICINE 0.6 MG TABLET (FP) PO SCH (10:00)
--- NOTE | 2018-01-02 11:09 | DS ---
Physical Exam: SUBJECTIVE: Patient seen and examined OBJECTIVE: Vital Signs Period Temp Pulse Resp BP Sys/Felipe Pulse Ox Last 24 Hr 98.1 F-99.1 F 64-84 17-18 97-138/53-90 94-95 PHYSICAL EXAM GENERAL: The patient is awake, alert, and fully oriented, in no acute distress. HEAD: Normal with no signs of trauma. EYES: PERRL, extraocular movements intact, sclera anicteric, conjunctiva clear. ENT: Ears normal, nares patent, oropharynx clear without exudates, moist mucous membranes. NECK: Trachea midline, full range of motion, supple. LUNGS: Breath sounds equal, clear to auscultation bilaterally, no wheezes, no crackles, no accessory muscle use. HEART: Regular rate and rhythm, S1, S2 without murmur, rub or gallop. ABDOMEN: Soft, nontender, nondistended, normoactive bowel sounds, no guarding, no rebound, no hepatosplenomegaly, no masses. EXTREMITIES: 2+ pulses, warm, well-perfused, no edema. NEUROLOGICAL: Cranial nerves II through XII grossly intact. Normal speech, gait not observed. PSYCH: Normal mood, normal affect. SKIN: Warm, dry, normal turgor, no rashes or lesions noted. LABS Laboratory Results - last 24 hr 01/01/18 01/01/18 01/01/18 07:30 07:35 07:35 ESR 13 Sodium Potassium Chloride Carbon Dioxide Anion Gap BUN Creatinine Random Glucose Calcium C-Reactive Protein 6.4 H Triglycerides Cholesterol Total LDL Cholesterol HDL Cholesterol TSH 0.03 L Urine Color Urine Appearance Urine pH Ur Specific [place] Urine Protein Urine Glucose (UA) Urine Ketones Urine Blood Urine Nitrite Urine Bilirubin Urine Urobilinogen Ur Leukocyte Esterase Urine RBC Urine WBC Ur Epithelial Cells Urine Bacteria 01/01/18 01/02/18 16:36 08:18 ESR Sodium 137 Potassium 4.0 Chloride 109 H Carbon Dioxide 21 L Anion Gap 7 L BUN 17 Creatinine 0.9 Random Glucose 99 Calcium 8.6 C-Reactive Protein Triglycerides 54 Cholesterol 175 Total LDL Cholesterol 102 HDL Cholesterol 62 TSH Urine Color Yellow Urine Appearance Clear Urine pH 5.0 Ur Specific [place] 1.020 Urine Protein 1+ H Urine Glucose (UA) Negative Urine Ketones Negative Urine Blood Negative Urine Nitrite Negative Urine Bilirubin 1+ H Urine Urobilinogen 0.2 Ur Leukocyte Esterase Negative Urine RBC 0-2 Urine WBC 5-10 Ur Epithelial Cells Few Urine Bacteria Few HOSPITAL COURSE: Date of Admission:12/31/17 Date of Discharge: 01/02/18 Minutes to complete discharge: 35 Discharge Summary Reason For Visit: CHEST PAIN Current Active Problems Chest pain (Acute) Shortness of breath (Acute) Condition: Guarded - Instructions Diet, Activity, Other Instructions: - continue low sodium diet - please follow up with the cook restaurant, Dr Ibarra within 1 week for an outpatient stress test - continue ibuprofen as needed for pain - continue all medications as prescribed - if any new or persistent symptoms develop please return to the emergency department Referrals: Geena Ibarra MD [Staff Physician] - 2 Weeks Disposition: HOME - Home Medications Comprehensive Discharge Medication List: Ambulatory Orders Levothyroxine [Synthroid -] 175 mcg PO DAILY 05/20/17 Ibuprofen [Motrin -] 600 mg PO Q8H PRN tablet 01/01/18 Lisinopril [Prinivil] 10 mg PO DAILY 01/01/18 Magnesium Oxide 400 mg PO HS 01/01/18 Valacyclovir HCl [Valtrex] 500 mg PO DAILY 01/01/18 This patient is new to me today: Yes Date on this admission: 01/02/18 Emergency Visit: No Critical Care patient: No - Discharge Referral Referred to [facility] Med P.C.: No
== END 2018-01-02 13:00 | disposition home or self-care (01) ==
LOC: FER 18:21 → FM/S 22:42
PROVIDERS: ADMIT Internal Medicine; ATTEND Nurse Practitioner Acute Care
PROC: 3E0333Z Introduction of Anti-inflammatory into Peripheral Vein, Percutaneous Approach (ICD-10-PCS; principal; 2017-12-31)
PROC: 3E033GC Introduction of Other Therapeutic Substance into Peripheral Vein, Percutaneous Approach (ICD-10-PCS; 2017-12-31)
PROC: 3E0337Z Introduction of Electrolytic and Water Balance Substance into Peripheral Vein, Percutaneous Approach (ICD-10-PCS; 2017-12-31)
DX: R07.9 Chest pain, unspecified (principal); R06.02 Shortness of breath; I10 Essential (primary) hypertension; Z85.828 Personal history of other malignant neoplasm of skin; E03.9 Hypothyroidism, unspecified; B00.9 Herpesviral infection, unspecified; R01.1 Cardiac murmur, unspecified
CPT/HCPCS: 36415; 71045-TC-FY; 71275-TC; 80048; 80053; 80061; 81003; 81015; 82550; 83735; 84100; 84436; 84443; 84484; 85025; 85651; 86140; 93005; 93306-TC; 99285-25; G0378

== ENCOUNTER 2023-06-13 15:47 | Emergency (ER) | payer OTHER ==
[2023-06-13 16:18] VITALS: BP 125/95; PULSE 89; RESP 18; TEMP 98.1; BMI 26.7
== END 2023-06-13 17:13 | disposition home or self-care (01) ==
LOC: FER 15:47
DX: R42 Dizziness and giddiness (principal)
CPT/HCPCS: 93005; 99283-25

== ENCOUNTER 2024-07-20 08:27 | Day surgery (SDC) | payer OTHER ==
[2024-07-15 12:30] VITALS: BMI 24.4
[2024-07-20] MEDS: CIPROFLOXACIN 0.3% EYE DROPS 5 ML BOTTLE ONE (09:00)
[2024-07-20] MEDS: TROPICAMIDE 1% OPHTH SOLN 15 ML BOTTLE ONE (09:00)
[2024-07-20] MEDS: CYCLOPENTOLATE 2% OPHTH SOLN 2 ML BOTTLE ONE (09:00)
[2024-07-20] MEDS: PHENYLEPHRINE 2.5% OPTHALMIC DROP 2ML BOTTLE ONE (09:00)
[2024-07-20] MEDS ORDERED: LIDOCAINE 1% P/F 10 MG/ML VIAL ONE (09:10)
[2024-07-20] MEDS ORDERED: EPINEPHrine/PF 1 MG/1 ML (1:1,000) AMPULE ONE (09:10)
[2024-07-20] MEDS ORDERED: BSS (NA/CA/MG/K) BALANCED SALT SOLUTION OPHTH SOLN 15 ML BOTTLE ONE (09:10)
[2024-07-20] MEDS ORDERED: TETRACAINE 0.5% OPHTH SOLN 2 ML BOTTLE ONE (09:10)
[2024-07-20] MEDS ORDERED: CARBACHOL 0.01% INTRA-OCULAR 1.5 ML VIAL ONE (09:10)
[2024-07-20] MEDS ORDERED: NEO/POLYMYX B SULF/DEXAMETH OPHTHALMIC 5ML BOTTLE ONE (09:10)
[2024-07-20] MEDS ORDERED: MIDAZOLAM HCL 2 MG/2 ML SINGLE DOSE VIAL ONE (10:07)
[2024-07-20 11:31] VITALS: RESP 18; TEMP 97
[2024-07-20 11:59] VITALS: BP 121/80; PULSE 69
== END 2024-07-20 12:25 | disposition home or self-care (01) ==
LOC: FASU 08:27
PROVIDERS: ATTEND Ophthalmology
PROC: 08RJ3JZ Replacement of Right Lens with Synthetic Substitute, Percutaneous Approach (ICD-10-PCS; principal; 2024-07-20 10:46)
DX: H26.8 Other specified cataract (principal)
CPT/HCPCS: 66984; V2632